=== PATIENT | male | born 1970 | race Caucasian/White ===

== ENCOUNTER 2019-08-14 12:13 | Emergency (ER) | payer OTHER ==
--- OUTSIDE RECORDS SUMMARY | 2019-08-14 12:33 | XMS REPORT | Continuity of Care Document ---
:1970 External Reference #:[id number] Author Name Cruz Mar MD Address [address] [place] [id number] Care Team Providers Name Role Phone Cruz Mar MD FACP - Care Team Information Public Transportation Inspector [phone] Internal Medicine Prince Rao MD - Otology & Care Team Information Public Transportation Inspector [phone] Neurotology Problems Active Problems Provider Date Vitamin D deficiency Cruz Mar MD Onset: 06/26/2015 Essential hypertension Cruz Mar MD Onset: 04/10/2013 Social History Type Date Description Comments Sex Unknown ETOH Use Rarely consumes alcohol Tobacco Use Start: Unknown Patient has never smoked Recreational Drug Use Never Used Drugs Exercise Type/Frequency Exercises regularly Run for 2 hours 5 times a week. Allergies, Adverse Reactions, Alerts Active Allergies Reaction Severity Comments Date Statins Headache, Myalgia, flu like symptoms Severe 03/07/2013 Medications Active Medications SIG Qnty Indications Ordering Date Provider Cialis 1 tablet by mouth 6tabs F52.21 Arroyo A 11/12/2015 20mg Tablets daily as needed for MD Zaid erectile dysfunction Vitamin D3 1 by mouth every E55.9 Arroyo A 06/26/2015 2000Unit day MD Zaid Capsules Multivitamins 1 by mouth every Unknown 05/16/2004 Capsules day Fish Oil 1 by mouth every Unknown 05/16/2004 1000mg day Capsules Immunizations CPT Code Status Date Vaccine Lot # [id number] Given 06/26/2015 Tdap-Tetanus, Diphtheria Toxoids/Acellular [id number] Tdap Pertussis Vaccine [id number]+ [id number] Refused 06/26/2015 Influenza Virus Split 3 Yrs And Above For Intramuscular Use Vital Signs Date Vital Result Comment 07/16/2019 1:02pm Body Temperature 98.4 F O2 % BldC Oximetry 99 % Heart Rate 67 /min BP Systolic 118 mmHg BP Diastolic 70 mmHg BMI (Body Mass Index) 28.3 kg/m2 Weight 203.00 lb Height 71 inches 5'11" 07/12/2018 1:21pm Body Temperature 98.0 F O2 % BldC Oximetry 95 % Heart Rate 57 /min BP Systolic 110 mmHg BP Diastolic 70 mmHg BMI (Body Mass Index) 28.7 kg/m2 Weight 203.00 lb Height 70.50 inches 5'10.50" Results Test Acquired Date Facility Test Result H/L Range Note CBC No Diff 07/10/2019 [facility] White Blood 6.7 10^3/uL Normal 3.5-10.8 [place] [address] Count [phone] Red Blood Count 5.03 10^6/uL Normal 4.18-5.48 Hemoglobin 16.1 g/dL Normal 14.0-18.0 Hematocrit 45 % Normal 42-52 Mean Corpuscular Volume 89 fL Normal 80-94 Mean Corpuscular Hemoglobin 32 pg High 27-31 Mean Corpuscular HGB Conc 36 g/dL Normal 31-36 Red Cell Distribution Width 13 % Normal 10-15 Platelet Count 250 10^3/uL Normal 150-450 Mean Platelet Volume 7.5 fL Normal 7.4-10.4 Comp Metabolic 07/10/2019 [facility] Sodium 142 mmol/L Normal 135-145 [place] [address] [phone] Potassium 4.2 mmol/L Normal 3.5-5.0 Chloride 103 mmol/L Normal 101-111 Co2 Carbon Dioxide 31 mmol/L Normal 22-32 Anion Gap 8 mmol/L Normal 2-11 Glucose 81 mg/dL Normal 70-100 Blood Urea Nitrogen 8 mg/dL Normal 6-24 Creatinine 1.03 mg/dL Normal 0.67-1.17 BUN/Creatinine Ratio 7.8 Low 8-20 Calcium 10.0 mg/dL Normal 8.6-10.3 Total Protein 6.7 g/dL Normal 6.4-8.9 Albumin 5.0 g/dL Normal 3.2-5.2 Globulin 1.7 g/dL Low 2-4 Albumin/Globulin Ratio 2.9 Normal 1-3 Total Bilirubin 1.10 mg/dL High 0.2-1.0 Alkaline Phosphatase 62 U/L Normal 34-104 Alt 29 U/L Normal 7-52 Ast 22 U/L Normal 13-39 Egfr Non- 76.8 >60 Egfr 92.9 >60 1 Lipid Profile 07/10/2019 [facility] Triglycerides 74 mg/dL 2 (Trig/Chol/HDL) [place] [address] [phone] Cholesterol 190 mg/dL 3 HDL Cholesterol 41.6 mg/dL 4 LDL Cholesterol 134 mg/dL 5 Urinalysis Profile 07/10/2019 [facility] [place] [address] [phone] Urine Appearance Clear Urine Specific [place] 1.011 Normal 1.010-1.030 Urine pH 6.0 Normal 5-9 Urine Urobilinogen Negative Negative Urine Ketones Negative Negative Urine Protein Negative Negative Urine Leukocytes Negative Negative Urine Blood Negative Negative Urine Nitrite Negative Negative Urine Bilirubin Negative Negative Urine Glucose Negative Negative 1 Because ethnic data is not always readily available, this report includes an eGFR for both -Americans and non- Americans. The National Kidney Disease Education Program (NKDEP) does not endorse the use of the MDRD equation for patients that are not between the ages of 18 and 70, are , have extremes of body size, muscle mass, or nutritional status, or are non- or non-. According to the National Kidney Foundation, irrespective of diagnosis, the stage of the disease is based on the level of kidney function: Stage Description GFR(mL/min/1.73 m(2)) 1 Kidney damage with normal or decreased GFR 90 2 Kidney damage with mild decrease in GFR 60-89 3 Moderate decrease in GFR 30-59 4 Severe decrease in GFR 15-29 5 Kidney failure <15 (or dialysis) 2 Desirable: <150 Borderline High: 150-199 High: 200-499 Very High: >500 3 Desirable: <200 Borderline High: 200-239 High: >239 4 Low: <40 Desirable: 40-60 High: >60 5 Desirable: <100 Near Optimal: 100-129 Borderline High: 130-159 High: 160-189 Very High: >189 Procedures Description No Information Available Medical Devices Description No Information Available Encounters Description No Information Available Assessments Date Code Description Provider 07/16/2019 Z00.01 Encounter for general adult medical Cruz Mar MD examination with abnorma Plan of Treatment 07/16/2019 - Cruz Mar MDZ00.01 Encounter for general adult medical examination with abnormaComments:Age, sex and risk appropriate preventive care recommendations discussed with patient. Physical findings discussed in detail.Patient verbalized understanding. Lifestyle and dietary modifications advised. Functional Status Description No Information Available Mental Status Description No Information Available Referrals Description No Information Available
--- NOTE | 2019-08-14 12:42 | UC ---
Skin Complaint HPI - HPI Summary HPI Summary: 48 yo male presents with tick bite. He tells me that he was exercising [place] the [place] this [place] and he went home to shower and noticed a tick to his left inner thigh. He removed the tick, but unsure how long it has been attached. Did not notice it yesterday, but has been outside almost daily. He denies symptoms at this time. - History of Current Complaint Time Seen by Provider: 08/14/19 12:42 Stated Complaint: TICK BITE Hx Obtained From: Patient Onset/Duration: Sudden Onset Current Severity: None - Allergy/Home Medications Allergies/Adverse Reactions: Allergies Allergy/AdvReac Type Severity Reaction Status Date / Time No Known Allergies Allergy Verified 06/22/17 14:23 Home Medications: Home Medications NK [No Home Medications Reported] 08/14/19 [History Confirmed 08/14/19] PMH/Surg Hx/FS Hx/Imm Hx - Additional Past Medical History Additional PMH: None - Surgical History Surgical History: Yes Surgery Procedure, Year, and Place: Rt SHOULDER - Xs 2 RCT. LSP - MICRODISCECTOMY - Family History Known Family History: Positive: None - Social History Lives: With Family Alcohol Use: Occasionally Substance Use Type: None Smoking Status (MU): Never Smoked Tobacco Review of Systems All Other Systems Reviewed And Are Negative: No Constitutional: Positive: Negative Skin: Positive: Other - Tick bite Respiratory: Positive: Negative Cardiovascular: Positive: Negative Neurological/Mental Status: Positive: Negative Psychological: Positive: Negative Physical Exam - Summary Physical Exam Summary: GENERAL: NAD. WDWN. No pain distress. SKIN: LEFT medial thigh: there is a 7mm diameter of mild erythema and edema with central 1mm area of superficial skin loss. No streaking, bleeding, or drainage. NECK: Supple. Nontender. No lymphadenopathy. CHEST: No accessory muscle use. Breathing comfortably and in no distress. CV: Pulses intact. Cap refill <2seconds NEURO: Alert. PSYCH: Age appropriate behavior. Triage Information Reviewed: Yes Vital Signs: Vital Signs: Temp Pulse Resp BP Pulse Ox 97.8 F 82 20 137/82 97 08/14/19 12:49 08/14/19 12:49 08/14/19 12:49 08/14/19 12:49 08/14/19 12:49 Vital Signs Reviewed: Yes Course/Dx - Course Course Of Treatment: Pt has tick with him and does not appear engorged. Tick is . Pt elected for prophylactic treatment today. Given that he is unsure how long it was attached - he was given 200mg doxycycline in the clinic for prophylaxis. Advised to monitor for signs/symptoms of lyme and be rechecked if he develops these - Diagnoses Provider Diagnosis: Tick bite Discharge ED - Sign-Out/Discharge Documenting (check all that apply): Patient Departure All imaging exams completed and their final reports reviewed: No Studies - Discharge Plan Condition: Stable Disposition: HOME Patient Education Materials: Lyme Disease (ED), Tick Bite (ED) Referrals: Cruz Mar MD [Primary Care Provider] - Additional Instructions: TICK BITE: You have been bitten by a tick. Once the tick is removed, these "bites" usually cause no problems. Tick fever, tick paralysis, [place] Sp[place] fever, and Lyme disease are uncommon -- but you should mention this tick bite to your doctor if you develop unusual symptoms in the next several weeks. If you develop any of the following, please see your physician promptly: (1) Fever, chills, or generalized malaise associated with a headache. (2) A red round area at the site of the bite (or elsewhere) (3) Joint pain, joint swelling or generalized weakness. (4) Redness, swelling, or drainage at the site of the bite. Ticks do not have a typical "head" attached to their body. There are mouth parts sticking out which they use to feed. If there are mouth parts left behind in the wound there is NO increased risk of Lyme infection or disease transmission. If mouth parts remain after tick removal, the best thing to do is apply warm soaks to the area 3-4 times per day to encourage the skin to expel the foreign material. WHEN A TICK IS NOT ENGORGED AND HAS BEEN ON LESS THAN 24 HOURS - THE RISK FOR LYME IS NEGLIGIBLE. YOU CAN REMOVE THE TICK AND OBSERVE THE AREA ON YOUR OWN. - Billing Disposition and Condition Condition: STABLE Disposition: Home
[2019-08-14] MEDS ORDERED: DOXYcycline CAP(*) 100 MG PO ONE (12:53)
[2019-08-14 12:54] VITALS: BP 137/82
== END 2019-08-14 13:07 | disposition home or self-care (01) ==
LOC: UCEAST 12:13
DX: S70.362A Insect bite (nonvenomous), left thigh, initial encounter (principal); W57.XXXA Bitten or stung by nonvenomous insect and other nonvenomous arthropods, initial encounter; Y93.A9 Activity, other involving cardiorespiratory exercise; Y92.321 Football field as the place of occurrence of the external cause
CPT/HCPCS: 99211; A9270-GY; G0463